=== PATIENT | female | born 1965 | race Caucasian/White ===

== ENCOUNTER → 2017-08-19 | Emergency (ER) | payer OTHER ==
[~2017-08-19] VITALS: Ht 160 cm; Wt 75.7 kg
[~2017-08-19] MED LIST: ATORVASTATIN CA10 MG; COZAAR100 MG; TOPROL XL25 MG; VITAMIN D250000 UNIT
== END | disposition left against medical advice (07) ==
LOC: ER 20:09
DX: Z53.20 Procedure and treatment not carried out because of patient's decision for unspecified reasons (principal)

== ENCOUNTER 2018-10-21 20:16 | Emergency (ER) | payer OTHER ==
[~2018-10-21] VITALS: Ht 160 cm; Wt 77.1 kg
[2018-10-21] MEDS ORDERED: TOPROL XL50 M1 (20:28)
[2018-10-21] MEDS ORDERED: LOSARTAN-HCTZ1 EAC2 (20:28)
[2018-10-22] MEDS ORDERED: ULTRACET PO (01:16)
== END 2018-10-22 01:51 | disposition home or self-care (01) ==
LOC: ER 20:16
DX: N20.0 Calculus of kidney (principal); N83.291 Other ovarian cyst, right side; K80.20 Calculus of gallbladder without cholecystitis without obstruction

== ENCOUNTER 2019-01-27 21:15 | Emergency (ER) | payer OTHER ==
[~2019-01-27] VITALS: Ht 160 cm; Wt 77.1 kg
[~2019-01-27 21:15] MED LIST changes: +LOSARTAN-HCTZ1 EAC2; +TOPROL XL50 M1; +ULTRACET PO
== END 2019-01-28 11:56 | disposition home or self-care (01) ==
LOC: ER 21:15
DX: N20.0 Calculus of kidney (principal)

== ENCOUNTER 2021-10-19 05:26 | Day surgery (SDC) | payer OTHER ==
[~2021-10-19] VITALS: Ht 160 cm; Wt 77.1 kg
[~2021-10-19 05:26] MED LIST changes: +DAILY VALUE1 EACH PO
== END 2021-10-19 15:40 | disposition home or self-care (01) ==
LOC: CIR.AMB 05:26
PROVIDERS: ATTEND Obstetrics & Gynecology
DX: D28.2 Benign neoplasm of uterine tubes and ligaments (principal); Z20.822 Contact with and (suspected) exposure to COVID-19; Z91.013 Allergy to seafood; Z88.8 Allergy status to other drugs, medicaments and biological substances; Z88.0 Allergy status to penicillin; I10 Essential (primary) hypertension; Z87.891 Personal history of nicotine dependence; Z87.442 Personal history of urinary calculi; E66.9 Obesity, unspecified

== ENCOUNTER → 2021-10-30 | Emergency (ER) | payer OTHER | END | disposition home or self-care (01) | LOC: ER 13:16 | DX: K80.20 Calculus of gallbladder without cholecystitis without obstruction (principal); N28.1 Cyst of kidney, acquired; N20.0 Calculus of kidney; Z88.0 Allergy status to penicillin; Z91.013 Allergy to seafood ==